=== PATIENT | female | born 1955 | race Native Hawaiian/Other Pacific Islander ===

== ENCOUNTER 2016-09-26 16:57 | Outpatient (CLI) | payer BC ==
[2016-09-26 17:34] LABS: PLATELET COUNT 262 K/uL (152-353)
[2016-09-26 17:44] LABS: POTASSIUM 4.4 mmol/L (3.6-5.2); SODIUM 133 mmol/L (136-145)
== END 2016-09-26 20:16 | disposition home or self-care (01) ==
LOC: CT 16:57
PROVIDERS: Nurse Practitioner Family
DX: R10.84 Generalized abdominal pain (principal)
CPT/HCPCS: 36415; 80053; 85027

== ENCOUNTER 2016-10-25 12:27 | Outpatient (CLI) | payer BC | END 2016-10-25 19:57 | disposition home or self-care (01) | LOC: RAD 12:27 | DX: R05 Cough (principal) ==

== ENCOUNTER 2016-10-28 10:42 | Inpatient (IN) | payer BC ==
[2016-10-28] VITALS (16 sets, daily range): BP systolic 74–130; BP diastolic 60–81; TEMP 98.5–98.9; Ht 160 cm; Wt 80.8 kg
[~2016-10-28] VITALS: Ht 160 cm; Wt 80.8 kg
[2016-10-28 12:39] LABS: PLATELET COUNT 350 K/uL (152-353)
[2016-10-28 12:58] LABS: POTASSIUM 3.9 mmol/L (3.6-5.2)
[2016-10-28 21:58] LABS: PARTIAL THROMBOPLASTIN TIME 30.1 SECONDS (24.5-33.6)
[2016-10-29] VITALS (33 sets, daily range): BP systolic 86–137; BP diastolic 61–92; TEMP 98.2–98.8
[2016-10-29 04:35] LABS: POTASSIUM 4.1 mmol/L (3.6-5.2)
[2016-10-29 04:36] LABS: PLATELET COUNT 291 K/uL (152-353)
[2016-10-29] MEDS ORDERED: CLON0.1T16 PO (10:09)
[2016-10-29] MEDS ORDERED: COZAAR100 MG PO (10:10)
[2016-10-29] MEDS ORDERED: UNITH DIRECT100 MCG PO (10:11)
[2016-10-29] MEDS ORDERED: PRAVACHOL20 MG PO (10:12)
[2016-10-29] MEDS ORDERED: GLIM2TAB PO (10:12)
[2016-10-29] MEDS ORDERED: METFORMIN ER1000 MG PO (10:19)
[2016-10-29] MEDS ORDERED: AMBIEN5 MG PO (10:20)
[2016-10-29] MEDS ORDERED: OMEP40CA PO (10:21)
[2016-10-30] VITALS (9 sets, daily range): BP systolic 114–178; BP diastolic 72–97; TEMP 98–98.9
[2016-10-30 03:06] LABS: PLATELET COUNT 382 K/uL (152-353)
[2016-10-30 03:19] LABS: POTASSIUM 4.3 mmol/L (3.6-5.2)
== END 2016-10-30 16:00 | disposition short-term general hospital (02) | DRG 314 ==
LOC: ED 10:42 → ICU 15:33
PROVIDERS: Internal Medicine; ADMIT Specialist
DX: I31.3 Pericardial effusion (noninflammatory) (principal); J18.8 Other pneumonia, unspecified organism; I31.4 Cardiac tamponade; I10 Essential (primary) hypertension; K21.9 Gastro-esophageal reflux disease without esophagitis; E11.9 Type 2 diabetes mellitus without complications; E03.8 Other specified hypothyroidism; I48.2 Chronic atrial fibrillation
CPT/HCPCS: 36415; 36591; 80048; 80053; 81000; 82550; 82805; 82962; 83735; 83880; 84100; 84443; 84484; 85027; 85379; 85610; 85651; 85730; 86039; 86140; 93005; 93306; 94640; 94664; 94760; 96365; 96366; 96372; 99284; J1100; J1170; J1644; J1940; J3411; J3475; J3490; Q9963

== ENCOUNTER 2016-10-30 17:21 | Outpatient (CLI) | payer BC ==
[~2016-10-30 17:21] MED LIST: AMBIEN5 MG PO; CLON0.1T16 PO; COZAAR100 MG PO; GLIM2TAB PO; METFORMIN ER1000 MG PO; OMEP40CA PO; PRAVACHOL20 MG PO; UNITH DIRECT100 MCG PO
== END 2016-10-30 17:54 | disposition short-term general hospital (02) ==
LOC: AMB 17:21
DX: I31.3 Pericardial effusion (noninflammatory) (principal); J18.8 Other pneumonia, unspecified organism; I31.4 Cardiac tamponade; I10 Essential (primary) hypertension; K21.9 Gastro-esophageal reflux disease without esophagitis; E11.9 Type 2 diabetes mellitus without complications; E03.8 Other specified hypothyroidism; I48.2 Chronic atrial fibrillation
CPT/HCPCS: A0425; A0429

== ENCOUNTER 2017-01-14 15:59 | Outpatient (CLI) | payer BC | END 2017-01-14 17:00 | disposition home or self-care (01) | LOC: LABW 15:59 | DX: Z79.899 Other long term (current) drug therapy (principal); I48.0 Paroxysmal atrial fibrillation; Z51.81 Encounter for therapeutic drug level monitoring | CPT/HCPCS: 36415; 80162 ==

== ENCOUNTER 2017-02-06 10:04 | Outpatient (CLI) | payer BC | END 2017-02-06 19:05 | disposition home or self-care (01) | LOC: RESP 10:04 | DX: I51.9 Heart disease, unspecified (principal); Z86.79 Personal history of other diseases of the circulatory system | CPT/HCPCS: 93306 ==

== ENCOUNTER 2017-03-27 13:38 | Outpatient (CLI) | payer BC | END 2017-03-27 19:38 | disposition home or self-care (01) | LOC: LABW 13:38 | DX: Z79.899 Other long term (current) drug therapy (principal); I48.0 Paroxysmal atrial fibrillation; Z51.81 Encounter for therapeutic drug level monitoring | CPT/HCPCS: 36415; 80162 ==

== ENCOUNTER 2017-04-02 15:57 | Inpatient (IN) | payer BC ==
[2017-04-02] VITALS (10 sets, daily range): BP systolic 132–199; BP diastolic 76–110; TEMP 98.4–98.6; Ht 160 cm; Wt 71.7 kg
[~2017-04-02] VITALS: Ht 160 cm; Wt 71.7 kg
[2017-04-02] MEDS ORDERED: LEFLUNOMIDE10 MG PO (16:29)
[2017-04-02] MEDS ORDERED: JANUVIA100 MG PO (16:30)
[2017-04-02] MEDS ORDERED: MEDROL4 MG OR (16:30)
[2017-04-02] MEDS ORDERED: FERR325T5 PO (16:31)
[2017-04-02] MEDS ORDERED: LANOXIN 0.120.125 M1 PO (16:32)
[2017-04-02] MEDS ORDERED: VICTOZA18 MG/3 ML SC (16:33)
[2017-04-02] MEDS ORDERED: COZAAR25 MG PO (16:33)
[2017-04-02] MEDS ORDERED: CARTIA XT180 MG/24 PO (16:34)
[2017-04-02] MEDS ORDERED: TRAZ100T OR (16:35)
[2017-04-02 16:38] LABS: PLATELET COUNT 254 K/uL (152-353)
[2017-04-02 16:51] LABS: POTASSIUM 3.9 mmol/L (3.6-5.2); SODIUM 133 mmol/L (136-145)
[2017-04-02 16:54] LABS: PARTIAL THROMBOPLASTIN TIME 25.2 SECONDS (24.5-33.6)
[2017-04-03] VITALS (14 sets, daily range): BP systolic 130–172; BP diastolic 72–92; TEMP 97.9–98.9
[2017-04-03 09:04] LABS: PLATELET COUNT 269 K/uL (152-353)
[2017-04-03 09:30] LABS: POTASSIUM 3.5 mmol/L (3.6-5.2); SODIUM 136 mmol/L (136-145)
[2017-04-03] MEDS ORDERED: LEVO-T112 MCG PO (18:37)
[2017-04-04] VITALS (10 sets, daily range): BP systolic 120–184; BP diastolic 69–101; TEMP 97.9–98.2
[2017-04-04 06:39] LABS: POTASSIUM 3.7 mmol/L (3.6-5.2); SODIUM 134 mmol/L (136-145)
[2017-04-04 06:41] LABS: PLATELET COUNT 207 K/uL (152-353)
== END 2017-04-04 14:10 | disposition short-term general hospital (02) | DRG 316 ==
LOC: ED 15:57 → ICU 20:17
PROVIDERS: Family Medicine; ADMIT Specialist
DX: I31.9 Disease of pericardium, unspecified (principal); R07.89 Other chest pain; I10 Essential (primary) hypertension; E11.9 Type 2 diabetes mellitus without complications; E03.8 Other specified hypothyroidism; D72.828 Other elevated white blood cell count; M06.80 Other specified rheumatoid arthritis, unspecified site; I31.3 Pericardial effusion (noninflammatory)
CPT/HCPCS: 36415; 80053; 80162; 82550; 82962; 83735; 83880; 84100; 84484; 85007; 85027; 85379; 85610; 85730; 93005; 94760; 96372; 99284; J1644; J2060; Q9963

== ENCOUNTER 2017-05-10 16:44 | Outpatient (CLI) | payer BC ==
[~2017-05-10 16:44] MED LIST changes: +CARTIA XT180 MG/24 PO; +COZAAR25 MG PO; +FERR325T5 PO; +JANUVIA100 MG PO; +LANOXIN 0.120.125 M1 PO; +LEFLUNOMIDE10 MG PO; +LEVO-T112 MCG PO; +MEDROL4 MG OR; +TRAZ100T OR; +VICTOZA18 MG/3 ML SC
== END 2017-05-10 17:45 | disposition home or self-care (01) ==
LOC: RAD 16:44
DX: J90 Pleural effusion, not elsewhere classified (principal); R53.83 Other fatigue; M05.79 Rheumatoid arthritis with rheumatoid factor of multiple sites without organ or systems involvement; Z79.899 Other long term (current) drug therapy; Z51.81 Encounter for therapeutic drug level monitoring

== ENCOUNTER 2017-10-10 16:23 | Outpatient (CLI) | payer BC | END 2017-10-10 17:25 | disposition home or self-care (01) | LOC: LAB 16:23 → LABW 16:23 → LAB 17:25 | DX: M05.79 Rheumatoid arthritis with rheumatoid factor of multiple sites without organ or systems involvement (principal); Z11.1 Encounter for screening for respiratory tuberculosis | CPT/HCPCS: 36415; 86480 ==

== ENCOUNTER 2018-04-24 12:51 | Outpatient (CLI) | payer OTHER | END 2018-04-24 19:43 | disposition home or self-care (01) | LOC: RESP 12:51 | DX: I25.10 Atherosclerotic heart disease of native coronary artery without angina pectoris (principal); Z86.79 Personal history of other diseases of the circulatory system | CPT/HCPCS: 93005; 93306 ==

== ENCOUNTER 2018-08-29 12:36 | Outpatient (CLI) | payer OTHER ==
[2018-08-29 13:11] LABS: PLATELET COUNT 238 K/uL (152-353)
[2018-08-29 13:29] LABS: POTASSIUM 4.1 mmol/L (3.6-5.2); SODIUM 138 mmol/L (136-145)
== END 2018-08-29 23:24 | disposition home or self-care (01) ==
LOC: LAB 12:36
DX: M05.79 Rheumatoid arthritis with rheumatoid factor of multiple sites without organ or systems involvement (principal); Z79.52 Long term (current) use of systemic steroids; Z79.899 Other long term (current) drug therapy
CPT/HCPCS: 36415; 80053; 85027; 85651

== ENCOUNTER 2019-02-27 11:30 | Outpatient (CLI) | payer OTHER ==
[2019-02-27 13:24] LABS: PLATELET COUNT 173 K/uL (152-353)
[2019-02-27 15:21] LABS: SODIUM 139 mmol/L (136-145)
== END 2019-02-27 20:42 | disposition home or self-care (01) ==
LOC: LABW 11:30
PROVIDERS: Nurse Practitioner Gerontology
DX: M05.79 Rheumatoid arthritis with rheumatoid factor of multiple sites without organ or systems involvement (principal); Z79.52 Long term (current) use of systemic steroids; Z79.899 Other long term (current) drug therapy
CPT/HCPCS: 36415; 80053; 85027; 85651; 86140

== ENCOUNTER 2020-05-12 17:32 | Outpatient (CLI) | payer OTHER ==
[2020-05-12 18:06] LABS: PLATELET COUNT 161 K/uL (152-353)
[2020-05-12 18:36] LABS: POTASSIUM 3.9 mmol/L (3.6-5.2)
== END 2020-05-12 23:42 | disposition home or self-care (01) ==
LOC: LAB 17:32
PROVIDERS: Internal Medicine
DX: E11.9 Type 2 diabetes mellitus without complications (principal); E03.8 Other specified hypothyroidism; M06.9 Rheumatoid arthritis, unspecified; E55.9 Vitamin D deficiency, unspecified
CPT/HCPCS: 80053; 81000; 82043; 82306; 82570; 83036; 84439; 84443; 84550; 85027; 85651; 86430

== ENCOUNTER 2020-05-19 13:51 | Outpatient (CLI) | payer OTHER ==
[2020-05-19 14:47] LABS: POTASSIUM 4.3 mmol/L (3.6-5.2)
== END 2020-05-19 23:43 | disposition home or self-care (01) ==
LOC: LAB 13:51
PROVIDERS: Specialist
DX: I10 Essential (primary) hypertension (principal); Z79.899 Other long term (current) drug therapy
CPT/HCPCS: 80048

== ENCOUNTER 2020-06-01 14:19 | Outpatient (CLI) | payer OTHER ==
[2020-06-01 15:45] LABS: POTASSIUM 4.2 mmol/L (3.6-5.2)
== END 2020-06-01 23:18 | disposition home or self-care (01) ==
LOC: LABW 14:19
PROVIDERS: Internal Medicine Cardiovascular Disease
DX: I10 Essential (primary) hypertension (principal)
CPT/HCPCS: 36415; 80048

== ENCOUNTER 2020-06-14 12:44 | Outpatient (CLI) | payer OTHER | END 2020-06-14 22:35 | disposition home or self-care (01) | LOC: RAD 12:44 | DX: M05.79 Rheumatoid arthritis with rheumatoid factor of multiple sites without organ or systems involvement (principal) ==

== ENCOUNTER 2021-04-10 11:43 | Outpatient (CLI) | payer OTHER ==
[2021-04-10 12:05] LABS: PLATELET COUNT 172 K/uL (152-353)
== END 2021-04-10 19:11 | disposition home or self-care (01) ==
LOC: LABW 11:43
PROVIDERS: ATTEND Nurse Practitioner
DX: E11.22 Type 2 diabetes mellitus with diabetic chronic kidney disease (principal); N18.30 Chronic kidney disease, stage 3 unspecified; E53.8 Deficiency of other specified B group vitamins
CPT/HCPCS: 36415; 80053; 81000; 82306; 82330; 82570; 82607; 82746; 83036; 83735; 83970; 84100; 84155; 84439; 84443; 85027

== ENCOUNTER 2021-07-13 14:35 | Outpatient (CLI) | payer OTHER | END 2021-07-13 19:25 | disposition home or self-care (01) | LOC: RAD 14:35 | PROVIDERS: ATTEND Nurse Practitioner Family | DX: M05.79 Rheumatoid arthritis with rheumatoid factor of multiple sites without organ or systems involvement (principal); M54.59 Other low back pain; Z79.52 Long term (current) use of systemic steroids; Z79.899 Other long term (current) drug therapy ==

== ENCOUNTER 2021-08-03 15:46 | Outpatient (CLI) | payer OTHER | END 2021-08-03 18:59 | disposition home or self-care (01) | LOC: RAD 15:46 | PROVIDERS: ATTEND Internal Medicine | DX: J40 Bronchitis, not specified as acute or chronic (principal) ==

== ENCOUNTER 2021-10-03 12:27 | Outpatient (CLI) | payer OTHER ==
[2021-10-03 12:50] LABS: PLATELET COUNT 201 K/uL (152-353)
[2021-10-03 13:29] LABS: POTASSIUM 4.2 mmol/L (3.6-5.2)
== END 2021-10-03 19:21 | disposition home or self-care (01) ==
LOC: LABW 12:27
PROVIDERS: ATTEND Internal Medicine
DX: N18.30 Chronic kidney disease, stage 3 unspecified (principal)
CPT/HCPCS: 36415; 80053; 81000; 82043; 82570; 83735; 84100; 84155; 85027

== ENCOUNTER 2021-11-06 14:20 | Outpatient (CLI) | payer OTHER ==
[2021-11-06 14:53] LABS: PLATELET COUNT 185 K/uL (152-353)
[2021-11-06 15:13] LABS: POTASSIUM 4.3 mmol/L (3.6-5.2)
== END 2021-11-06 20:13 | disposition home or self-care (01) ==
LOC: LAB 14:20
PROVIDERS: ATTEND Internal Medicine
DX: Z00.00 Encounter for general adult medical examination without abnormal findings (principal); Z13.820 Encounter for screening for osteoporosis; E55.9 Vitamin D deficiency, unspecified; E11.9 Type 2 diabetes mellitus without complications
CPT/HCPCS: 80053; 80061; 81000; 82306; 83036; 84439; 84443; 85027

== ENCOUNTER 2022-01-08 17:09 | Outpatient (CLI) | payer OTHER | END 2022-01-08 18:56 | disposition home or self-care (01) | LOC: LAB 17:09 | PROVIDERS: ATTEND Internal Medicine | DX: R79.89 Other specified abnormal findings of blood chemistry (principal); Z79.899 Other long term (current) drug therapy | CPT/HCPCS: 84439; 84443 ==

== ENCOUNTER 2022-02-13 12:39 | Outpatient (CLI) | payer OTHER ==
[2022-02-13 13:21] LABS: PLATELET COUNT 192 K/uL (152-353)
[2022-02-13 13:39] LABS: POTASSIUM 4.2 mmol/L (3.6-5.2)
== END 2022-02-13 19:15 | disposition home or self-care (01) ==
LOC: LABW 12:39
PROVIDERS: ATTEND Internal Medicine
DX: E11.22 Type 2 diabetes mellitus with diabetic chronic kidney disease (principal); N18.31 Chronic kidney disease, stage 3a; E53.8 Deficiency of other specified B group vitamins
CPT/HCPCS: 36415; 80053; 81002; 82330; 82570; 82607; 82746; 83036; 83735; 84100; 84156; 84439; 84443; 85027

== ENCOUNTER 2022-08-03 11:14 | Outpatient (CLI) | payer OTHER ==
[2022-08-03 11:53] LABS: PLATELET COUNT 228 K/uL (152-353)
[2022-08-03 12:45] LABS: POTASSIUM 4.1 mmol/L (3.6-5.2)
== END 2022-08-03 19:04 | disposition home or self-care (01) ==
LOC: LABW 11:14
PROVIDERS: ATTEND Internal Medicine
DX: E11.22 Type 2 diabetes mellitus with diabetic chronic kidney disease (principal); N18.31 Chronic kidney disease, stage 3a
CPT/HCPCS: 36415; 80053; 81002; 82043; 82306; 82330; 82570; 82607; 82746; 83036; 83735; 83970; 84100; 84156; 84439; 84443; 85027

== ENCOUNTER 2022-10-23 14:24 | Outpatient (CLI) | payer OTHER | END 2022-10-23 18:59 | disposition home or self-care (01) | LOC: RAD 14:24 | PROVIDERS: ATTEND Nurse Practitioner Family | DX: M05.79 Rheumatoid arthritis with rheumatoid factor of multiple sites without organ or systems involvement (principal); M25.551 Pain in right hip; M47.816 Spondylosis without myelopathy or radiculopathy, lumbar region; Z79.52 Long term (current) use of systemic steroids; Z79.69 Long term (current) use of other immunomodulators and immunosuppressants ==

== ENCOUNTER 2022-12-17 16:29 | Outpatient (CLI) | payer OTHER ==
[2022-12-17 16:47] LABS: PLATELET COUNT 253 K/uL (152-353)
== END 2022-12-17 19:01 | disposition home or self-care (01) ==
LOC: LABW 16:29
PROVIDERS: ATTEND Internal Medicine
DX: E11.22 Type 2 diabetes mellitus with diabetic chronic kidney disease (principal); N18.31 Chronic kidney disease, stage 3a
CPT/HCPCS: 36415; 80053; 81002; 82043; 82306; 82330; 82570; 82607; 82746; 83036; 83735; 83970; 84100; 84156; 84439; 84443; 85027

== ENCOUNTER 2023-02-06 13:18 | Outpatient (CLI) | payer OTHER | END 2023-02-06 22:13 | disposition home or self-care (01) | LOC: RAD 13:18 | PROVIDERS: ATTEND Nurse Practitioner Family | DX: M05.79 Rheumatoid arthritis with rheumatoid factor of multiple sites without organ or systems involvement (principal); M25.551 Pain in right hip; M25.552 Pain in left hip; M47.816 Spondylosis without myelopathy or radiculopathy, lumbar region; Z79.899 Other long term (current) drug therapy ==

== ENCOUNTER 2023-04-23 16:08 | Outpatient (CLI) | payer OTHER ==
[2023-04-23 16:29] LABS: PLATELET COUNT 253 K/uL (152-353)
[2023-04-23 17:05] LABS: POTASSIUM 4.5 mmol/L (3.6-5.2)
== END 2023-04-23 19:06 | disposition home or self-care (01) ==
LOC: LABW 16:08
PROVIDERS: ATTEND Internal Medicine
DX: E11.22 Type 2 diabetes mellitus with diabetic chronic kidney disease (principal); N18.31 Chronic kidney disease, stage 3a
CPT/HCPCS: 36415; 80053; 81002; 82043; 82306; 82330; 82570; 83036; 83735; 83970; 84100; 84156; 85027